=== PATIENT | male | born 1970 | race Caucasian/White ===

== ENCOUNTER 2017-07-13 18:20 | Emergency (ER) | payer OTHER ==
[~2017-07-13] VITALS: Ht 172.7 cm; Wt 88.5 kg
[2017-07-13 18:27] VITALS: Ht 172.7 cm; Wt 88.5 kg
[2017-07-13] MEDS ORDERED: DIPHTH/TET/ACEL PERTUSS (ADULT) 0.5 ML VIAL IM* ONE (20:00)
--- NOTE | 2017-07-13 20:19 | ERD ---
ER Documentation Chief Complaint Chief Complaint pt cut L index finger Friday HPI This 46-year-old male sustained a laceration on his left index finger on the tip 2 days ago on the edge of a metal part of his car while washing it. Denies restricted range of motion weakness. Tetanus is not up-to-date. ROS All systems reviewed and are negative except as per history of present illness. PMhx/Soc Medical and Surgical Hx: pt denies Medical Hx, pt denies Surgical Hx Hx Alcohol Use: No Hx Substance Use: No Hx Tobacco Use: No Smoking Status: Never smoker Physical Exam Vitals Vital Signs Date Time Temp Pulse Resp B/P Pulse Ox O2 Delivery O2 Flow Rate FiO2 07/13/17 18:27 98.0 63 16 145/82 96 Physical Exam Const: [] Alert, [id number]. Head: Atraumatic Eyes: Normal Conjunctiva ENT: Normal External Ears, Nose and Mouth. Neck: Full range of motion..~ No meningismus. Resp: Clear to auscultation bilaterally Cardio: Regular rate and rhythm, no murmurs Abd: Soft, non tender, non distended. Normal bowel sounds Skin: No petechiae or rashes Back: No midline or flank tenderness Ext: No cyanosis, or edema. There is a 1.2 cm laceration on the lateral pad of the left index finger. There is no restricted range of motion weakness. There is no bleeding or erythema. Wound is healing by secondary intention. Neur: Awake and alert Psych: Normal Mood and Affect Results 24 hrs Current Medications Medications (Trade) Dose Ordered Sig/Tatyana Route PRN Reason Start Time Stop Time Status Last Admin Dose Admin Diphtheria/ Tetanus/Acell Pertussis (Adacel) 0.5 ml ONCE ONCE IM* 07/13/17 20:00 07/13/17 20:01 DC 07/13/17 19:54 Procedures/MDM Patient presents with a approximately 48 hour old laceration on the tip of his left index finger without evidence of tendon or neurologic deficits, signs of infection, or evidence to suggest fracture dislocation. Wound was cleansed with normal saline. Dermabond Steri-Strips were used to cover and reapproximate the wound which is early healing. Patient was discharged home instructions for wound check in 2 days otherwise sooner for fevers, redness, new or worsening symptoms. Departure Diagnosis: Primary Impression: Laceration Condition: Stable Patient Instructions: Laceration, Hand Additional Instructions: cheque en 2 wing para infeccion - jeferson tamayo fienre. ADEOLA APONTE MD Jul 13, 2017 20:19
[2017-07-13 21:45] VITALS: BP 126/72; PULSE 89; RESP 16; TEMP 98.8
== END 2017-07-13 21:47 | disposition home or self-care (01) ==
LOC: FTE 18:20
DX: S61.211A Laceration without foreign body of left index finger without damage to nail, initial encounter (principal); W26.8XXA Contact with other sharp object(s), not elsewhere classified, initial encounter; Y92.9 Unspecified place or not applicable; Z23 Encounter for immunization
CPT/HCPCS: 12001; 90471; 90715; Z7502; Z7610